=== PATIENT | female | born 1975 | race Two or more races ===

== ENCOUNTER 2016-12-29 21:08 | Emergency (ER) | payer OTHER ==
[2016-12-29] MEDS ORDERED: DOXYCYCLINE HYCLATE 100 MG TABLET ONE (22:54)
--- NOTE | 2016-12-30 08:14 | RAD ---
Exam: Two-view chest COMPARISON: None INDICATION: Cough for 5 days. FINDINGS: PA and lateral views of the chest were obtained. Cardiac silhouette is within normal limits. Lungs are well-inflated. There is no focal airspace disease or pleural effusion. Bones of the chest wall within normal limits. IMPRESSION: No radiographic evidence of pneumonia.
== END 2016-12-29 23:23 | disposition home or self-care (01) ==
LOC: ED 21:08
DX: R05 Cough (principal)
CPT/HCPCS: 71020; 99283 ×2; A9270

== ENCOUNTER 2017-01-23 13:06 | Emergency (ER) | payer OTHER ==
[2017-01-23] MEDS ORDERED: IOPAMIDOL 300 (61%) 100 ML VIAL IV ONE (13:07)
[2017-01-23 14:17] LABS: SPECIFIC GRAVITY 1.015 (1.001-1.030); URINE BILIRUBIN NEGATIVE (NEGATIVE); URINE BLOOD NEGATIVE (NEGATIVE); URINE GLUCOSE (UA) NEGATIVE (NEGATIVE); URINE LEUKOCYTE ESTERASE NEGATIVE (NEGATIVE); URINE NITRITE NEGATIVE (NEGATIVE); URINE PROTEIN NEGATIVE (NEGATIVE); URINE UROBILINOGEN NORMAL (0-1 mg/dl)
[2017-01-23 14:18] LABS: HCG,QUALITATIVE URINE NEGATIVE
[2017-01-23 14:28] LABS: URINE APPEARANCE CLEAR; URINE COLOR YELLOW
[2017-01-23] MEDS ORDERED: KETOROLAC TROMETHAMINE 15 MG/ML VIAL ONE (14:33)
[2017-01-23] MEDS ORDERED: ONDANSETRON 4 MG/2ML 2 ML VIAL ONE (14:33)
[2017-01-23] MEDS ORDERED: SODIUM CHLORIDE 0.9% 1,000 ML ONE (14:33)
[2017-01-23 15:09] LABS: ABSOLUTE NEUTROPHIL COUNT 4.4 K/mm3 (1.8-7.7); BASO % 0.6 % (0.2-1.0); EOS # 0.1 (0.0-0.5); EOS % 1.1 % (0.9-2.9); HEMOGLOBIN 13.9 gm/l (12.0-16.0); IMM NEUT% 0.1 % (0-1); LYMPH # 2.1 (1.0-4.8); LYMPH % 29.6 % (15-45); MEAN CELL VOLUME 91.3 fl (81.0-99.0); MEAN CORPUSCULAR HGB CONC 33.9 g/dl (33.0-37.0); MEAN PLATELET VOLUME 10.1 fl (7.4-10.4); MONO # 0.5 (0.0-0.8); MONO % 6.7 % (4-12); NEUT % 61.9 % (43-75); PLATELET COUNT 279 K/mm3 (130-400); RED CELL DISTRIBUTION WIDTH 12.3 % (11.5-14.5)
[2017-01-23 15:10] LABS: ALB/GLOB RATIO 1.4 (>1.0); CALCIUM 9.4 mg/dL (8.6-10.3)
--- NOTE | 2017-01-23 16:13 | CT ---
Exam Type: ABD/PELVIS W/ CON Date and Time: 01/23/2017 3:03 PM Clinical information: Lower abdominal pain with fever. Comparison: None Procedure: Imaging device: [id number] Aquilion [address] scanner 1 mm axial images were obtained through the abdomen and pelvis. Stacked reconstructed 3, 4 and 5 mm images were photographed in the axial coronal and sagittal planes. No oral contrast was utilized for this examination. 100 ml of Isovue-300 was injected intravenously. Exam: with intravenous contrast. FINDINGS: Lung bases:The visualized lung bases appear to be appropriate with no mass, effusion or consolidation visualized. Bilateral breast implants are present. Liver: the liver is homogeneous with no discrete abnormality visualized. No definite findings of biliary dilatation are observed. Spleen: The spleen is homogeneous and does not appear to be enlarged. Gallbladder: Appears partially contracted. No suggested inflammatory stranding is observed. Pancreas: Normal without enlargement or evidence of adjacent inflammatory changes. Adrenal glands: Normal without enlargement or evidence of adjacent inflammatory changes. Abdominal aorta: The aorta is of normal caliber and appears to be without significant atherosclerotic disease. Kidneys: The kidneys appear to be symmetric in size with no perinephric inflammatory changes are identified. No current findings of hydronephrosis are seen. Bowel structures: The visualized bowel is of normal caliber without evidence of dilatation or obstruction. No free fluid or mesenteric inflammatory changes are identified. Appendix: The appendix is well-visualized and appears to be of normal caliber. No periappendiceal inflammatory changes or CT findings of appendicitis are currently observed. Bladder: Mildly distended. Hernia: No abdominal wall or inguinal hernia is visualized on this examination. Adenopathy: No significant enlarged adenopathy is visualized. Osseous structures: No discrete osseous abnormalities are identified. Pelvic structures: There is evidence of a very heterogeneous appearance of the central aspect of the uterus in the expected location of the endometrium. Considerations would include fibroids, endometrial hemorrhage products or even endometritis. There is a low-attenuation structure seen to the right aspect of the uterus measuring up to 2.0 cm, likely an adnexal cyst. Incidental note is made of bilateral gluteal implants. IMPRESSION: 1. A heterogeneous appearance of the central portion of the uterus in the region of the endometrium with considerations including endometritis, endometrial hemorrhage products or possibly fibroids. 2. A 2.0 cm suggested right adnexal cyst. 3. A normal appearance of the appendix without CT evidence of appendicitis. 4. Mild distention of the bladder. 5. Bilateral breast and gluteal implants.
[2017-01-23] MEDS ORDERED: AZITHROMYCIN 250 MG TABLET ONE (16:37)
[2017-01-23] MEDS ORDERED: CEFTRIAXONE 1 GRAM DUPLEX 50 ML IV ONE (16:37)
[2017-01-24 14:44] LABS: CHLAMYDIA BD Negative (Negative); N.GONORRHOEAE BD Negative (Negative); SOURCE Urine (())
== END 2017-01-23 17:06 | disposition home or self-care (01) ==
LOC: ED 13:06
DX: N71.9 Inflammatory disease of uterus, unspecified (principal); R51 Headache; R11.10 Vomiting, unspecified
CPT/HCPCS: 83690; 87491; 87591; 81025; 82150; 85025; 82550; 80053; 81003; 74177; 96375 ×2; 99284 ×2; 96361; 96365; J1885; J2405; A9270; J7030; Q9967; J0696